=== PATIENT | female | born 1960 | race Two or more races ===

== ENCOUNTER 2020-05-20 09:17 | Emergency (ER) | payer OTHER ==
[~2020-05-20] VITALS: Ht 157.5 cm; Wt 82.6 kg
[~2020-05-20 09:17] MED LIST: CELEXA20 MG PO; KLONOPIN0.5 MG/TAB PO; VYTORIN 10-20 M1 TAB PO
[2020-05-20] MEDS ORDERED: TOPROL XL25 M1 (09:39)
[2020-05-20] MEDS ORDERED: INTESTINEX680 M1 PO (16:53)
[2020-05-20] MEDS ORDERED: CIPRO500 MG PO (16:53)
[2020-05-20] MEDS ORDERED: LEVSIN/SL0.125 MG SL (16:53)
[2020-05-20] MEDS ORDERED: KETO10TA2 PO (16:53)
[2020-05-20] MEDS ORDERED: PEPCID AC20 MG PO (16:53)
[2020-05-20] MEDS ORDERED: FLAGYL500MG PO (16:53)
== END 2020-05-20 17:33 | disposition home or self-care (01) ==
LOC: ER 09:17
DX: A09 Infectious gastroenteritis and colitis, unspecified (principal); R10.32 Left lower quadrant pain; Z03.818 Encounter for observation for suspected exposure to other biological agents ruled out

== ENCOUNTER 2022-12-30 11:09 | Emergency (ER) | payer OTHER ==
[~2022-12-30] VITALS: Ht 157.5 cm; Wt 81.2 kg
[~2022-12-30 11:09] MED LIST changes: +CIPRO500 MG PO; +FLAGYL500MG PO; +INTESTINEX680 M1 PO; +KETO10TA2 PO; +LEVSIN/SL0.125 MG SL; +PEPCID AC20 MG PO; +TOPROL XL25 M1
[2022-12-30] MEDS ORDERED: EUTHYROX88 MCG PO (11:40)
== END 2022-12-30 19:43 | disposition home or self-care (01) ==
LOC: ER 11:09
DX: K52.9 Noninfective gastroenteritis and colitis, unspecified (principal); Z88.2 Allergy status to sulfonamides; E03.9 Hypothyroidism, unspecified; I10 Essential (primary) hypertension; Z20.822 Contact with and (suspected) exposure to COVID-19

== ENCOUNTER 2023-04-15 15:03 | Emergency (ER) | payer OTHER ==
[~2023-04-15] VITALS: Ht 162.6 cm; Wt 77.1 kg
[~2023-04-15 15:03] MED LIST changes: +EUTHYROX88 MCG PO
[2023-04-15] MEDS ORDERED: INTESTINEX680 M1 PO (20:05)
[2023-04-15] MEDS ORDERED: PEPCID20 MG PO (20:05)
[2023-04-15] MEDS ORDERED: DICY20TA PO (20:05)
== END 2023-04-15 20:19 | disposition home or self-care (01) ==
LOC: ER 15:03
PROVIDERS: Nurse Practitioner Family
DX: K52.9 Noninfective gastroenteritis and colitis, unspecified (principal); I10 Essential (primary) hypertension; Z88.2 Allergy status to sulfonamides; Z85.42 Personal history of malignant neoplasm of other parts of uterus; Z20.822 Contact with and (suspected) exposure to COVID-19

== ENCOUNTER 2025-04-05 20:25 | Emergency (ER) | payer OTHER ==
[~2025-04-05] VITALS: Ht 157.5 cm; Wt 77.1 kg
[~2025-04-05 20:25] MED LIST changes: +DICY20TA PO; +PEPCID20 MG PO
[2025-04-05] MEDS ORDERED: LIPITOR80 MG (21:16)
[2025-04-05] MEDS ORDERED: FAMOtidine 10 MG/ML (4ML VIAL) IV ONE (21:45)
[2025-04-05] MEDS ORDERED: 0.9 % SODIUM CHLORIDE 500 ML IV ONE (21:45)
[2025-04-05] MEDS ORDERED: MECLIZINE HCL 12.5 MG TABLET PO ONE (22:30)
[2025-04-05 23:21] LABS: BASO % 0.4 % (0.1-1.2); EOS # 0.39 (0.04-0.54); EOS % 3.8 % (0.7-7.0); LYMPH # 3.32 (1.18-3.74); LYMPH % 32.2 % (19.3-53.1); MEAN PLATELET VOLUME 9.10 fl (9.4-12.4); MONO # 0.75 (0.24-0.82); MONO % 7.3 % (4.7-12.5); NEUT # 5.80 (1.56-6.13); NEUT % 56.1 % (34.0-71.1); RED CELL DISTRIBUTION WIDTH 13.7 % (11.6-14.4)
[2025-04-05 23:39] LABS: INR 1.05
[2025-04-05 23:44] LABS: ALT/SGPT 24.0 U/L (12-78); AST/SGOT 16.0 U/L (15-37); BILIRUBIN TOTAL 0.23 mg/dL (0.3-1.2); BUN CREA RATIO 19.0 (7.0-25.0); CREATININE SERUM 0.83 mg/dL (0.55-1.02); GFR 69.43; GLOBULINA 4.2 G/DL (2.4-3.5); GLUCOSE FASTING 87.0 mg/dL (65-100); OSMOLALITY SERUM 289.0 MOSM/KG (275-295)
[2025-04-05 23:52] LABS: COVID-19 AG NEGATIVE (NEGATIVE)
[2025-04-05] MEDS ORDERED: MECLIZINE HCL12.5 MG PO (23:57)
== END 2025-04-06 00:05 | disposition home or self-care (01) ==
LOC: ER 20:25
PROVIDERS: General Practice
DX: R42 Dizziness and giddiness (principal); Z20.822 Contact with and (suspected) exposure to COVID-19; I10 Essential (primary) hypertension; Z88.2 Allergy status to sulfonamides